=== PATIENT | male | born 1990 ===

== ENCOUNTER 2022-10-27 20:54 | Emergency (ER) | payer MEDICAID, SELFPAY ==
[2022-10-27 20:56] VITALS: BP 134/84; PULSE 83; RESP 18; TEMP 36.6; O2SAT 98; BMI 28.3
--- NOTE | 2022-10-27 21:21 | ED_ITS ---
HPI - General Adult General Chief complaint: General Medical Stated complaint: Penis issue Time Seen by Provider: 10/27/22 21:16 Source: patient History of Present Illness HPI narrative: Patient complaining of irritation on the penis since yesterday after sex no penile discharge no history of STDs Related Data Previous Rx's Medication Instructions Recorded bacitracin zinc 500 unit-polymyxin 1 appl topical Q8H #14.2 grams 10/27/22 B 10,000 unit/gram topical ointment (Polysporin) Allergies Allergy/AdvReac Type Severity Reaction Status Date / Time No Known Allergies Allergy Verified 10/27/22 21:07 Review of Systems Review of Systems: Yes all other systems are reviewed and are negative [facility] Social History Social History Advance Directives: No Advance Directives Information Provided: No Physical Exam ED Vital Signs: Vital Signs - 24 hr 10/27/22 20:56 Temperature 97.9 F Pulse Rate 83 Respiratory Rate 18 Blood Pressure 134/84 Pulse Oximetry 98 Oxygen Delivery Method Room Air BMI result Body Mass Index 28.3 Male genitals images: 1. Uncircumcised superficial abrasion on the glans skin no signs of infection no penile discharge Medications Administered Discontinued Medications Generic Name Dose Route Start Last Admin Trade Name Frankieq PRN Reason Stop Dose Admin Bacitracin 1 appl 10/27/22 21:41 10/27/22 21:52 Bacitracin Oint 14 Gm Tube TOPICAL 10/27/22 21:42 1 appl ONCE ONE Administration Protocol Medical Decision Making Medical Decision Making [facility] Narrative: Patient has superficial abrasion of the foreskin of the penis after having rough sex yesterday no signs of infection will give bacitracin ointment Lab Data Labs: Lab Results 10/27/22 Range/Units 21:21 Urine Color Yellow Urine Appearance Clear Urine pH 5.5 (5.0-9.0) Ur Specific [place] 1.025 (1.005-1.025) Urine Protein Negative (Neg-Trace) mg/dL Urine Glucose (UA) Negative (Negative) mg/dL Urine Ketones Negative (Negative) mg/dL Urine Blood Negative (Negative) Urine Nitrite Negative (Negative) Ur Leukocyte Esterase Negative (Negative) Discharge Plan Discharge Clinical Impression: Penile abrasion Patient Disposition: Home, Self-Care Instructions: Abrasion (ED) Additional Instructions: Local care as advised apply bacitracin ointment Prescriptions: New bacitracin zinc-polymyxin B [Polysporin] 500-10,000 unit/gram ointment 1 appl topical Q8H Qty: 14.2 0RF Interventions: ED Discharge Assessment Last Done: 10/27/22 21:50 Discharge Date/Time: 10/27/22 21:52
[2022-10-27 21:27] LABS: Appearance Urine Clear; Color Urine Yellow; Glucose Urine UA Negative (Negative); Leukocyte Esterase Urine Negative (Negative); Nitrite Urine Negative (Negative); PH 5.5 (5.0-9.0); Specific Gravity - Urine 1.025 (1.005-1.025); Urine Blood Negative (Negative); Urine Ketones Negative (Negative); Urine Protein Negative (Neg-Trace)
[2022-10-27] MEDS: Bacitracin Oint 14 GM TUBE 1 APPL TOPICAL (21:52)
[2022-10-28 07:18] LABS: CT PCR NOT DETECTED (Not Detect.); NG PCR NOT DETECTED (Not Detect.)
== END 2022-10-27 21:52 | disposition home or self-care (01) ==
PROVIDERS: Emergency Provider Internal Medicine
DX: S30.812A Abrasion of penis, initial encounter (principal); N48.89 Other specified disorders of penis; X58.XXXA Exposure to other specified factors, initial encounter; Y93.9 Activity, unspecified; Y92.9 Unspecified place or not applicable; Y99.9 Unspecified external cause status; Z20.2 Contact with and (suspected) exposure to infections with a predominantly sexual mode of transmission
CPT/HCPCS: 0353U; 81003; 99282; 99283

== ENCOUNTER 2023-11-08 13:38 | Emergency (ER) | payer MEDICAID, SELFPAY ==
--- NOTE | ~2023-11-08 | XR_ITS ---
EXAMINATION: XR CHEST CLINICAL INFORMATION: Chest pain COMPARISON: None available. TECHNIQUE: Frontal view of the chest was obtained. FINDINGS: No significant abnormality is noted involving the heart, lungs, mediastinum, bony thorax or soft tissues. XR/XR chest 1V IMPRESSION: Unremarkable examination.
[2023-11-08 13:57] VITALS: BP 128/80; PULSE 79; RESP 16; TEMP 36.6; O2SAT 97; BMI 29.2
--- NOTE | 2023-11-08 13:58 | ECG_ITS ---
Test Reason : DYSPNEA Blood Pressure : / mmHG Vent. Rate : 082 BPM Atrial Rate : 082 BPM P-R Int : 132 ms QRS Dur : 084 ms QT Int : 356 ms P-R-T Axes : 081 -39 024 degrees QTc Int : 415 ms Normal sinus rhythm Left axis deviation Minimal voltage criteria for LVH, may be normal variant ( Martinez product ) Abnormal ECG No previous ECGs available Referred By: Woody Calloway Electronically Signed By:JIGAR CRUZ MD
--- NOTE | 2023-11-08 13:58 | ED.GENADULT ---
HPI - General Adult General Chief complaint: General Medical Stated complaint: Diff Breathing Chest Discomfort Time Seen by Provider: 11/08/23 16:06 Source: patient Mode of arrival: ambulatory Limitations: no limitations History of Present Illness HPI narrative: 33-year-old male with no significant past medical history who presents emergency department with complaints of midsternal chest pain reproducible on palpation. Patient reports pain began 11:00 a.m. this morning when he was sitting in his truck. 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 He states pain initially caused shortness of breath and pain in the right ear which has since subsided. He reports that he ate [employer] a couple hours before pain began. He denies any radiation pain, current shortness of breath, abdominal pain, nausea, vomiting, dizziness, lightheadedness, or change in gait or range of motion. pertinent positives and negatives discussed in HPI Related Data Previous Rx's Medication Instructions Recorded bacitracin zinc 500 unit-polymyxin 1 appl topical Q8H #14.2 grams 10/27/22 B 10,000 unit/gram topical ointment (Polysporin) Allergies Allergy/AdvReac Type Severity Reaction Status Date / Time No Known Allergies Allergy Verified 10/27/22 21:07 Review of Systems Review of Systems: Yes all other systems are reviewed and are negative [facility] Social History Social History Advance Directives: No Advance Directives Information Provided: No Physical Exam ED Vital Signs: Vital Signs - 24 hr 11/08/23 13:57 11/08/23 16:00 Temperature 98 F 98.7 F Pulse Rate 79 59 Respiratory Rate 16 14 Blood Pressure 128/80 122/74 Pulse Oximetry 97 100 Oxygen Delivery Method Room Air Room Air BMI result Body Mass Index 29.2 Nursing notes and vital signs reviewed. GENERAL APPEARANCE: A&0 x 4, generally well appearing, no acute distress HENMT: Normal to inspection, atraumatic, face symmetrical. Normal external ears, nose, and oropharynx clear. EYE: PERRLA, EOM intact, structures appear normal NECK: Supple without lymphadenopathy. No stiffness or restricted ROM. CHEST: Normal to inspection, no ecchymosis or erythema, midsternal pain on palpation HEART: Normal rate and regular rhythm, normal S1/S2, no M/R/G LUNGS: LS CTA, moving air well. Able to speak in complete sentences. No crackles, wheezes, or rhonchi auscultated ABDOMEN: Soft, nontender, nondistended. Normal bowel sounds noted BACK: No CVAT, no obvious deformity EXTREMITIES: Moving all extremities without difficulty. No cyanosis, clubbing, or edema. Normal capillary refill. NEUROLOGICAL: Alert and oriented, moving all 4 extremities with equal strength. CN not formally tested but appearing grossly intact. Observed to ambulate with normal gait. Cognition normal SKIN: Warm and dry without any lesions, rash, or visible sores PSYCH: Cooperative, normal affect, normal thought process Course Course Course Narrative: RME: 33 yold male presents to the ED for chest pain and headache since this morning while at work. NO leg swelling or calf pain. labs/EKG/covid ordered Medications Administered Discontinued Medications Generic Name Dose Route Start Last Admin Trade Name Freq PRN Reason Stop Dose Admin Acetaminophen 650 mg 11/08/23 16:51 11/08/23 17:02 Acetaminophen 325 Mg Tablet PO 11/08/23 16:52 650 mg ONCE ONE Administration Al Hydroxide/Mg Hydroxide 30 ml 11/08/23 16:51 11/08/23 17:03 Magnesium Hydrox/Alum Hydrox 30 Ml Oral.Susp PO 11/08/23 16:52 30 ml ONCE ONE Administration Medical Decision Making Medical Decision Making [facility] Narrative: Old records reviewed for previous imaging, lab studies, ECGs, or notes. Patient was assessed the emergency department. No acute distress or toxicity noted. Patient is A&O x4, LS CTA, LENZ x4 with good strength. Chest x-ray completed showing no evidence of acute infection per my interpretation. EKG was normal sinus rhythm no signs of acute ischemia or ectopy, also per my interpretation. Nasal serology negative for COVID and flu. Blood work essentially unremarkable. Patient's symptoms are consistent with midsternal chest pain most likely due to a muscle strain or overuse injury secondary to heavy lifting/physically demanding job. Patient is safe for discharge at this time with plan for [id number] Tylenol and/or NSAID such as ibuprofen or naproxen for fever/discomfort with dosing as per packaging. HPI, PE, diagnostics, and plan discussed with patient and family with no unanswered questions at this time. Strict return precautions given to return to the emergency department with new, worsening, or concerning emergent symptoms. Recommended to follow-up with there primary care provider in 24-48 hours for further treatment and management. Differential Diagnosis Differential Diagnoses: The differential diagnosis associated with the presentation includes But not limited to ACS, PE, pneumonia, pneumothorax, pleurisy, costochondritis, contusion, strain/sprain Lab Data 11/08/23 14:09 11/08/23 14:09 Labs: Lab Results 11/08/23 Range/Units 14:09 WBC 10.1 (4.8-10.8) X10*3/uL RBC 5.12 (4.60-5.80) X10*6/uL Hgb 15.8 (14.0-18.0) g/dl Hct 45.3 (42.0-52.0) % MCV 88.5 (80.0-98.0) fL MCH 30.9 (27.0-33.0) pg MCHC 34.9 (31.0-36.0) g/dl RDW 12.7 (11.0-16.0) % Plt Count 241 (160-400) X10*3/uL MPV 10.8 (9.4-12.4) fL Immature Gran % (Auto) 0.2 (0.0-0.4) % Neut % (Auto) 67.1 (45-73) % Lymph % (Auto) 24.3 (20-40) % [place] % (Auto) 7.7 (2-11) % Eos % (Auto) 0.4 (0-4) % Baso % (Auto) 0.3 (0-2) % Lymph # (Auto) 2.5 (1.2-4.9) X10*3/uL [place] # (Auto) 0.8 (0.1-1.2) X10*3/uL Eos # (Auto) 0.0 (0.0-0.4) X10*3/uL Baso # (Auto) 0.0 (0.0-0.2) X10*3/uL Abs Immat Gran (auto) 0.02 (0.00-0.03) X10*3/uL Absolute Neuts (auto) 6.8 (2.0-8.3) x10*3/uL Absolute Nucleated RBC 0.000 (0.0-0.012) X10*3/uL Nucleated RBC % (auto) 0.0 (0.0-0.2) /100WBC PT 12.6 (11.1-13.3) SEC INR 1.0 (0.9-1.1) APTT 36.6 (26.0-36.8) SEC Sodium 138 (135-145) mmol/L Potassium 4.0 (3.3-5.1) mmol/L Chloride 109 H (96-108) mmol/L Carbon Dioxide 21 L (22-29) mmol/L Anion Gap 12 (12-20) BUN 17 H (9-16) mg/dL Creatinine 0.73 (0.5-1.4) mg/dL Estim Creat Clear Calc 128.0 Estimated GFR > 60 Random Glucose 94 (60-115) mg/dL Calcium 9.4 (8.4-10.2) mg/dL Total Bilirubin 0.3 (0.0-1.0) mg/dL AST 18 (5-37) U/L ALT 20 (0-40) U/L Alkaline Phosphatase 84 (39-117) U/L Troponin I High Sens < 2.7 (<3.5-35.0) ng/L B-Natriuretic Peptide < 10 (<100) pg/mL Total Protein 7.4 (6.5-8.0) g/dL Albumin 4.6 (3.5-5.0) g/dL COVID-19 (KIRSTEN) Negative (Negative) COVID-19 Clin Com See Note Influenza Type A (ELLIOT) Negative (Negative) Influenza Type B (ELLIOT) Negative (Negative) Influenza A & B Note See Note Discharge Plan Discharge Clinical Impression: Mid sternal chest pain, Muscle strain of chest wall Patient Disposition: Home, Self-Care Instructions: Muscle Strain (ED), Chest Wall Pain (ED) Additional Instructions: Your seen in the emergency department for concerns of mid-sternal chest pain that was reproducible with palpation. Your workup showed no evidence of heart attack or pneumonia. Your symptoms are consistent with a muscle strain. You are safe for discharge at this time with plan for management of fever or discomfort with [id number] Tylenol and/or NSAID such as ibuprofen or naproxen with dosing as per packaging. Please return to the emergency department with new, worsening, or concerning emergent symptoms. Recommended to follow-up with your primary care provider in 24-48 hours for further treatment and management. [facility] Prescriptions: No Action bacitracin zinc-polymyxin B [Polysporin] 500-10,000 unit/gram ointment 1 appl topical Q8H Qty: 14.2 0RF Referrals: [facility] Family Medicine [Provider Group] [facility] Primary CareYudy [Provider Group] [facility] [place] [facility] [facility] [facility]] Stand Alone Forms: Work/School Release Interventions: ED Discharge Assessment Last Done: 11/08/23 17:08 Discharge Date/Time: 11/08/23 17:09 Print Language: Russian
[2023-11-08 14:15] LABS: MANUAL DIFF FLAG NO
[2023-11-08 14:17] LABS: Basophils Percent Auto 0.3 % (0-2); Eosinophils Percent Auto 0.4 % (0-4); Hematocrit 45.3 % (42.0-52.0); Hemoglobin 15.8 g/dl (14.0-18.0); Imm Gran Abs Auto 0.02 X10*3/uL (0.00-0.03); Imm Gran Pct Auto 0.2 % (0.0-0.4); Lymphocytes Absolute Auto 2.5 X10*3/uL (1.2-4.9); Lymphocytes Percent Auto 24.3 % (20-40); Mean Corpuscular HGB Conc 34.9 g/dl (31.0-36.0); Mean Corpuscular Hemoglobin 30.9 pg (27.0-33.0); Mean Corpuscular Volume 88.5 fL (80.0-98.0); Mean Platelet Volume 10.8 fL (9.4-12.4); Monocytes Absolute Auto 0.8 X10*3/uL (0.1-1.2); Monocytes Percent Auto 7.7 % (2-11); Neutrophils Absolute Auto 6.8 x10*3/uL (2.0-8.3); Neutrophils Percent Auto 67.1 % (45-73); Platelet Count 241 X10*3/uL (160-400); Red Blood Count 5.12 X10*6/uL (4.60-5.80); Red Cell Distribution Width 12.7 % (11.0-16.0); White Blood Count 10.1 X10*3/uL (4.8-10.8)
[2023-11-08 14:23] LABS: Prothrombin Time 12.6 SEC (11.1-13.3)
[2023-11-08 14:26] LABS: Partial Thromboplastin Time 36.6 SEC (26.0-36.8)
[2023-11-08 14:31] LABS: Alanine Aminotransferase 20 U/L (0-40); Albumin Level 4.6 g/dL (3.5-5.0); Alkaline Phosphatase 84 U/L (39-117); Anion Gap 12 (12-20); Aspartate Amino Transferase 18 U/L (5-37); Bilirubin Total 0.3 mg/dL (0.0-1.0); Blood Urea Nitrogen 17 mg/dL (9-16); Calcium 9.4 mg/dL (8.4-10.2); Carbon Dioxide 21 mmol/L (22-29); Chloride 109 mmol/L (96-108); Estimated Glomerular Filt Rate > 60; Glucose Random 94 mg/dL (60-115); Sodium 138 mmol/L (135-145); Total Protein 7.4 g/dL (6.5-8.0)
[2023-11-08 14:32] LABS: COVID-19 Test Negative (Negative); IDNOW Serial# 08D9AD1C; IDNOW Serial# 152EDE1D; Influenza A Negative (Negative); Influenza B2 Negative (Negative)
[2023-11-08 14:37] LABS: B Type Natriuretic Peptide < 10 pg/mL (<100)
[2023-11-08 14:38] LABS: Troponin-I High Sensitivity < 2.7 ng/L (<3.5-35.0)
[2023-11-08 16:00] VITALS: BP 122/74; PULSE 59; RESP 14; TEMP 37.1; O2SAT 100
[2023-11-08] MEDS: Acetaminophen 325 MG TABLET 650 MG PO (17:02)
[2023-11-08] MEDS: Magnesium Hydrox/Alum Hydrox 30 ML ORAL.SUSP PO (17:03)
== END 2023-11-08 17:09 | disposition home or self-care (01) ==
PROVIDERS: Physician Assistant; Emergency Provider Student in an Organized Health Care Education/Training Program
DX: R07.89 Other chest pain (principal); S29.011A Strain of muscle and tendon of front wall of thorax, initial encounter; X50.0XXA Overexertion from strenuous movement or load, initial encounter; Y93.89 Activity, other specified; Y92.59 Other trade areas as the place of occurrence of the external cause; Y99.9 Unspecified external cause status; Z11.52 Encounter for screening for COVID-19
CPT/HCPCS: 36415; 71045; 80053; 83880; 84484; 85025; 85610; 85730; 87502; 87635; 93005; 99283; 99284

== ENCOUNTER → 2023-11-08 13:58 | Outpatient (BNV) | payer MEDICAID, SELFPAY | PROVIDERS: Emergency Provider Student in an Organized Health Care Education/Training Program; Visit Provider Internal Medicine Cardiovascular Disease | DX: R94.31 Abnormal electrocardiogram [ECG] [EKG] (principal) | CPT/HCPCS: 93010 ==

== ENCOUNTER 2025-06-12 21:56 | Emergency (ER) | payer MEDICAID, SELFPAY ==
--- NOTE | ~2025-06-12 | XR_ITS ---
CLINICAL HISTORY: chest pain, SOB 1 view chest x-ray Comparison: Chest x-ray 11/08/2023 Findings: No consolidation or effusion. Heart size is normal. No acute fracture. IMPRESSION: 1. No acute cardiopulmonary abnormality. This document has been electronically signed by: Abel Hoang MD on 06/12/2025 23:37:38
--- NOTE | 2025-06-12 21:57 | ECG_ITS ---
Test Reason : CHEST PAIN Blood Pressure : */* mmHG Vent. Rate : 79 BPM Atrial Rate : 79 BPM P-R Int : 130 ms QRS Dur : 90 ms QT Int : 358 ms P-R-T Axes : 41 -22 33 degrees QTcB Int : 410 ms Normal sinus rhythm Normal ECG When compared with ECG of 08-Nov-2023 14:04, No significant change was found Referred By: Generic ED Physician Electronically Signed By: Micheal Higginbotham
[2025-06-12 22:09] VITALS: BP 141/70; PULSE 79; RESP 16; TEMP 36.8; O2SAT 98; BMI 30.3
[2025-06-12 22:31] LABS: MANUAL DIFF FLAG NO
[2025-06-12 22:32] VITALS: BP 131/79; PULSE 78; RESP 21; TEMP 36.8; O2SAT 98
[2025-06-12 22:32] LABS: Hematocrit 42.1 % (42.0-52.0); Hemoglobin 14.9 g/dl (14.0-18.0); Imm Gran Abs Auto 0.03 X10*3/uL (0.00-0.03); Imm Gran Pct Auto 0.3 % (0.0-0.4); Lymphocytes Absolute Auto 2.9 X10*3/uL (1.2-4.9); Mean Corpuscular HGB Conc 35.4 g/dl (31.0-36.0); Mean Corpuscular Hemoglobin 31.0 pg (27.0-33.0); Mean Corpuscular Volume 87.5 fL (80.0-98.0); NRBC Abs Auto 0.000 X10*3/uL (0.0-0.012); NRBC Pct Auto 0.0 /100WBC (0.0-0.2); Platelet Count 229 X10*3/uL (160-400); Red Blood Count 4.81 X10*6/uL (4.60-5.80); White Blood Count 8.9 X10*3/uL (4.8-10.8)
[2025-06-12 22:43] LABS: Anion Gap 15 (12-20); Blood Urea Nitrogen 16 mg/dL (9-16); Calcium 9.6 mg/dL (8.4-10.2); Carbon Dioxide 23 mmol/L (22-29); Chloride 110 mmol/L (96-108); Creatinine Clr Calc Pharmacy 108.2; Estimated Glomerular Filt Rate > 60; Potassium 4.1 mmol/L (3.3-5.1); Sodium 144 mmol/L (135-145)
--- OUTSIDE RECORDS SUMMARY | 2025-06-12 22:45 | XMS_ITS | Clinical Summary ---
Author Organization [employer] Address [address] [place] [address] Care Team Providers Care Account Services Specialist Name Role Phone Unavailable Primary Care Provider Unavailabl e Allergies No known active allergies Social History Tobacco Use Types Packs/Day Years Used Date Smoking Tobacco: Never Assessed Sex and Gender Information Value Date Recorded Sex Assigned at Male 02/02/2023 10:02 AM EDT Legal Sex Male 9:55 AM EDT Gender Identity Male 02/02/2023 10:02 AM EDT Sexual Orientation Straight 02/02/2023 10 :02 AM EDT Plan of Treatment Health Maintenance Due Date Last Done Comments Depression Screening 1988 HIV Screening 1988 Lipid Panel 1988 SDOH Screening 1988 Disability Screening 1988 Alcohol/Substance Use Screening 2000 Tobacco Screening 2000 Family Planning (PISQ) 2003 HPV Vaccines (1 - Male 3-dos e series) 2003 Hepatitis C Screening 2006 DTaP/Tdap/Td Vaccines (1 - Tdap) 2007 Hepatitis B Vaccines (1 of 3 - 19+ 3-dose series) 2007 COVID-19 Vaccine (1 - 2023-2 5 season) 2025 Influenza Vaccine (#1) 2025 Zoster Vaccines (1 of 2) 2038 RSV Patients and Pa tients Aged 60 years or older (1 - 1-dose 75+ series) 2063 HIB Vaccines Aged Out No longer eligi ble based on patient's age to complete this topic Hepatitis A Vaccines Aged Out No long er eligible based on patient's age to complete this topic IPV Vaccines Aged Out No longer eligi ble based on patient's age to complete this topic Meningococcal B Vaccine Aged Out No l onger eligible based on patient's age to complete this topic Meningococcal Vaccine Aged Out No alexandra loy eligible based on patient's age to complete this topic Pneumococcal Vaccine: Pediat rics (0 to 5 Years) and At-Risk Patients (6 to 49) Years Aged Out No longer eligible b ased on patient's age to complete this topic RSV under 20 months Aged Out No longe r eligible based on patient's age to complete this topic Rotavirus Vaccines Aged Out No longer eligible based on patient's age to complete this topic Insurance [facility] C3
[2025-06-12 22:51] LABS: COVID-19 Test Negative (Negative); IDNOW Serial# 6674DD1D
[2025-06-12 22:52] LABS: Troponin-I High Sensitivity < 2.7 ng/L (<3.5-35.0)
--- NOTE | 2025-06-12 23:24 | ED.CHESTPAIN ---
HPI - Chest Pain General Chief Complaint: Chest Pain Stated Complaint: chest pain Time Seen by Provider: 06/12/25 23:09 Source: patient and old records reviewed Mode of arrival: ambulatory Limitations: no limitations History of Present Illness ED Provider: SHELIA CORONADO narrative: 34 yo male with no PMH no hx of CAD no prior cardiac work up who has no fam hx of early CAD, denies any recent travel, procedures, hx of VTE and no hormone use. He had no preceding URI. He reports since Monday while at rest he has pain across his chest and makes it painful to breathe. It hurts to touch his chest. He denies cough, dyspnea, fevers, rash. He has not had this before. MD complaint: chest pain Onset (ago): day(s) (Monday) Timing of current episode: constant Prior episodes: No Pain location: substernal and left chest Pain radiation: left arm Severity: moderate Quality: aching Relieving factors: nothing Exacerbating factors: palpation and movement Treatment prior to arrival: none Related Data Previous Rx's ?Medication ?Instructions ?Recorded bacitracin zinc 500 unit-polymyxin 1 appl topical Q8H #14.2 grams 10/27/22 B 10,000 unit/gram topical ointment (Polysporin) cyclobenzaprine 10 mg tablet 10 mg PO TID PRN muscle spasm #20 06/13/25 tabs prednisone 20 mg tablet 40 mg (2 x 20 mg) PO DAILY 4 days 06/13/25 #8 tabs Allergies Allergy/AdvReac Type Severity Reaction Status Date / Time No Known Allergies Allergy Verified 06/12/25 22:13 Review of Systems Review of Systems: Constitutional : No Fever, No Chills ENT/Mouth : No sore throat, No Rhinorrhea, No Swallowing Difficulty Eyes: No Eye Pain, No Swelling, No Redness Cardiovascular : pos Chest Pain, positive SOB, No Orthopnea, no Edema Respiratory : No Cough, No Sputum, No Wheezing, positive dyspnea Gastrointestinal : No Nausea, No Vomiting, No Diarrhea, No abdominal Pain, No Hematochezia, No Melena Genitourinary : No Dysuria, No Urinary Frequency, No Hematuria Musculoskeletal : No joint pain, No Myalgias Skin : No Skin Lesions, No rash Neuro : No Weakness, No Numbness, No Dizziness, No Headache All other systems reviewed and are negative PMFSH Past Medical History Attestation statement: The following information was validated with the patient. Source: old records reviewed Medical History No pertinent past medical history Social History Social History Smoked in Last 30 Days: No Use of substances other than those prescribed or required for medical reasons: No Advance Directives: No Physical Exam Vital Signs: Vital Signs: Last Vital Signs Temp 98.2 F 06/12/25 22:32 Pulse 78 06/12/25 22:32 Resp 21 H 06/12/25 22:32 BP 131/79 06/12/25 22:32 Pulse Ox 98 06/12/25 22:32 O2 Del Method Room Air 06/12/25 22:32 BMI result Body Mass Index 30.3 Appearance: Alert. Oriented X3. No acute distress. Eyes: Pupils equal, round and reactive to light. ENT: Pharynx normal. Neck: Normal inspection. Neck supple. CVS: Normal heart rate and rhythm. Pulses normal. Chest wall: ttp along L anterior chest that reproduces with pain Respiratory: No respiratory distress. Breath sounds normal. Abdomen: Soft and nontender. Skin: Skin warm and dry. Normal skin color. Extremities: No lower extremity edema. Neuro: Oriented X 3. No motor deficit. No sensory deficit. CN2-12 intact Medical Decision Making Medical Decision Making [facility] Narrative: 34 yo male with no PMH here with c/o 6 days of chest wall pain worse with palpations and movements makes him feel like it hurts to breathe, he has no ACS risk factors will obtain EKG, no preceding viral syndrome to suggest pericarditis/myocarditis, he is PERC negative, his lungs are CTAB doubt PTX, he has symmetric distal pulses doubt dissection. Will obtain EKG, trop x 1, CXR. He has no exertional chest pain symptoms. Heart score = 0 Differential Diagnosis Differential Diagnoses: The differential diagnosis associated with the presentation includes atypical chest pain, costochondritis Admission/Observation Consideration of admission/observation: Escalation of care including admission/observation considered work up negative stable for DC Lab Data [facility] Lab Attestation statement: I reviewed the patient's lab results. 06/12/25 22:25 06/12/25 22:25 Labs: Lab Results 09/04/25 Range/Units 22:25 WBC 8.9 (4.8-10.8) X10*3/uL RBC 4.81 (4.60-5.80) X10*6/uL Hgb 14.9 (14.0-18.0) g/dl Hct 42.1 (42.0-52.0) % MCV 87.5 (80.0-98.0) fL MCH 31.0 (27.0-33.0) pg MCHC 35.4 (31.0-36.0) g/dl RDW 13.0 (11.0-16.0) % Plt Count 229 (160-400) X10*3/uL MPV 11.3 (9.4-12.4) fL Immature Gran % (Auto) 0.3 (0.0-0.4) % Neut % (Auto) 54.4 (45-73) % Lymph % (Auto) 32.9 (20-40) % [place] % (Auto) 10.3 (2-11) % Eos % (Auto) 1.7 (0-4) % Baso % (Auto) 0.4 (0-2) % Lymph # (Auto) 2.9 (1.2-4.9) X10*3/uL [place] # (Auto) 0.9 (0.1-1.2) X10*3/uL Eos # (Auto) 0.2 (0.0-0.4) X10*3/uL Baso # (Auto) 0.0 (0.0-0.2) X10*3/uL Abs Immat Gran (auto) 0.03 (0.00-0.03) X10*3/uL Absolute Neuts (auto) 4.9 (2.0-8.3) x10*3/uL Absolute Nucleated RBC 0.000 (0.0-0.012) X10*3/uL Nucleated RBC % (auto) 0.0 (0.0-0.2) /100WBC Sodium 144 (135-145) mmol/L Potassium 4.1 (3.3-5.1) mmol/L Chloride 110 H (96-108) mmol/L Carbon Dioxide 23 (22-29) mmol/L Anion Gap 15 (12-20) BUN 16 (9-16) mg/dL Creatinine 0.87 (0.5-1.4) mg/dL Estim Creat Clear Calc 108.2 Estimated GFR > 60 Random Glucose 93 (60-115) mg/dL Calcium 9.6 (8.4-10.2) mg/dL Troponin I High Sens < 2.7 (<3.5-35.0) ng/L COVID-19 (KIRSTEN) Negative (Negative) COVID-19 Clin Com See Note Independent Interpretation I performed an independent interpretation of an: EKG and Plain X-Ray (normal ) Interpretation: Rate: 79 Rhythm: NSR [place]: left Normal P waves. Normal [place]. Normal QRS complex. ST T wave : normal no LATOYA qTC: 410 prior studies: no acute ischemia The study has been interpreted contemporaneously by me. . Radiology Impression Discussion of test interpretation with radiology: I have reviewed the radiologist's reading. External Record Review External record reviewed: Outpatient record Prescription Management I considered prescription management with: Other Discharge Plan Discharge Clinical Impression: Acute costochondritis Patient Disposition: Home, Self-Care Instructions: Costochondritis (ED) Additional Instructions: take all medications with food return for worsening symptoms or any other concerns xray and EKG normal no COVID this can happen again in the future Prescriptions: New cyclobenzaprine 10 mg tablet 10 mg PO TID PRN (Reason: muscle spasm) Qty: 20 0RF prednisone 20 mg tablet 40 mg PO DAILY 4 Days Qty: 8 0RF No Action bacitracin zinc-polymyxin B [Polysporin] 500-10,000 unit/gram ointment 1 appl topical Q8H Qty: 14.2 0RF Print Language: Hungarian
[2025-06-13 00:36] VITALS: BP 135/88; PULSE 96; RESP 17; TEMP 36.7; O2SAT 98
== END 2025-06-13 00:37 | disposition home or self-care (01) ==
PROVIDERS: Emergency Provider Emergency Medicine
DX: M94.0 Chondrocostal junction syndrome [Tietze] (principal); R07.89 Other chest pain; I25.10 Atherosclerotic heart disease of native coronary artery without angina pectoris; Z11.52 Encounter for screening for COVID-19; Z03.818 Encounter for observation for suspected exposure to other biological agents ruled out
CPT/HCPCS: 71045; 80048; 84484; 85025; 87635; 93005; 99283; 99284

== ENCOUNTER → 2025-06-12 21:57 | Outpatient (BNV) | payer MEDICAID, SELFPAY | PROVIDERS: Emergency Provider Emergency Medicine; Visit Provider Internal Medicine Cardiovascular Disease | DX: R07.9 Chest pain, unspecified (principal) | CPT/HCPCS: 93010 ==

== ENCOUNTER → 2025-06-12 22:23 | Outpatient (BNV) | payer MEDICAID, SELFPAY | PROVIDERS: Emergency Provider Emergency Medicine; Visit Provider Radiology Diagnostic Radiology | DX: R07.9 Chest pain, unspecified (principal); R06.02 Shortness of breath | CPT/HCPCS: 71045 ==

== ENCOUNTER 2025-08-06 23:57 | Emergency (ER) | payer MEDICAID, SELFPAY ==
[2025-08-06 23:59] VITALS: BP 130/76; PULSE 93; RESP 20; TEMP 36.7; O2SAT 98; BMI 29.2
--- NOTE | 2025-08-07 00:42 | ED.BACK ---
HPI - Back Pain/Injury General Chief Complaint: Back Pain/Injury Stated Complaint: back pain Time Seen by Provider: 08/07/25 00:28 Source: patient Mode of arrival: ambulatory Limitations: no limitations History of Present Illness ED Provider: Dr. Blane Owens HPI Narrative: 34-year-old male with no significant past medical history presents emergency department for evaluation of neck, shoulder and lower back pain x1 week. The patient does not recount any injury. He states the pain came on gradually, his constant and is severe (10/10). Patient's pain is worse with movement. He has taken Tylenol with minimal relief for the pain. Denied fever, chills, numbness, weakness, loss of bowel or bladder control Related Data Previous Rx's ?Medication ?Instructions ?Recorded bacitracin zinc 500 unit-polymyxin 1 appl topical Q8H #14.2 grams 10/27/22 B 10,000 unit/gram topical ointment (Polysporin) cyclobenzaprine 10 mg tablet 10 mg PO TID PRN muscle spasm #20 06/13/25 tabs prednisone 20 mg tablet 40 mg (2 x 20 mg) PO DAILY 4 days 06/13/25 #8 tabs cyclobenzaprine 10 mg tablet 10 mg PO TID PRN pain, muscle 08/07/25 spasm #15 tabs ibuprofen 400 mg tablet 400 mg PO TID PRN fever or pain 08/07/25 #30 tabs Allergies Allergy/AdvReac Type Severity Reaction Status Date / Time No Known Allergies Allergy Verified 08/07/25 00:00 Review of Systems Review of Systems: Yes all other systems are reviewed and are negative [facility] Past Medical History [facility] Narrative: Social history: Patient smokes 1 pack of cigarettes per day times 17 years. He denies alcohol use. He denies drug use. Medical History No pertinent past medical history Social History Social History Advance Directives: No Physical Exam Vital Signs: Vital Signs: Last Vital Signs Temp 98.1 F 08/06/25 23:59 Pulse 93 08/06/25 23:59 Resp 20 08/06/25 23:59 BP 130/76 08/06/25 23:59 Pulse Ox 98 08/06/25 23:59 O2 Del Method Room Air 08/06/25 23:59 BMI result Body Mass Index 29.2 Vital signs were normal Exam: General: Awake, alert in no distress Head: Normocephalic, atraumatic EENT: PERRL, sclera and conjunctiva are normal, mouth with no erythema or exudates Neck: Tenderness with spasm of the trapezius muscles bilaterally Lung: breath sounds symmetric, no wheezing, no rales and no rhonchi Chest: symmetric movement, nontender Heart: regular rate and rhythm, normal S1, S2 no murmurs or rubs Abdomen: soft, non-tender, nondistended, normal bowel sounds Back: no vertebral tenderness, tenderness palpation of bilateral paraspinal muscles in the lumbar sacral region, negative straight leg raises bilaterally Extremities: no deformities, moves all extremities symmetrically, no edema Neuro: Awake, alert, oriented, normal speech, cranial nerves 2-12 intact, moves all extremities symmetrically Psych: Pleasant, cooperative Medical Decision Making Medical Decision Making MDM Narrative: 34-year-old male with no significant past medical history presents emergency department for evaluation of neck, shoulder and lower back pain x1 week. The patient does not recount any injury. He states the pain came on gradually, his constant and is severe (10/10). Patient's pain is worse with movement. He has taken Tylenol with minimal relief for the pain. Denied fever, chills, numbness, weakness, loss of bowel or bladder control. Vital signs were normal. Physical exam did reveal tenderness with palpation of the bilateral trapezius muscles and bilateral paraspinal muscles in the lumbar sacral area. Differential diagnosis: ?Includes but is not limited to musculoskeletal sprain, musculoskeletal strain, musculoskeletal spasm, disc disease Course: Patient's examination is consistent with musculoskeletal sprain with spasm. Patient was given Toradol 60 mg IM with some relief his pain. Patient was started on ibuprofen 400 mg 3 times a day as needed for pain. He was also advised to continue taking his Tylenol as directed on the bottle. Patient was also given a prescription for cyclobenzaprine 10 mg 3 times a day as needed for pain that has spasm. He was given printed and verbal instructions and discharged home. Differential Diagnosis Differential Diagnoses: The differential diagnosis associated with the presentation includes (See above) Admission/Observation Consideration of admission/observation: Escalation of care including admission/observation considered (Yes) Prescription Management I considered prescription management with: Pain Medication (Ibuprofen 400 mg tablets) and Other (Cyclobenzaprine) Discharge Plan Discharge Clinical Impression: Strain of lumbar region Qualifiers: Encounter type: initial encounter Qualified Code(s): S39.012A - Strain of muscle, fascia and tendon of lower back, initial encounter Cervical muscle strain Qualifiers: Encounter type: initial encounter Qualified Code(s): S16.1XXA - Strain of muscle, fascia and tendon at neck level, initial encounter Patient Disposition: Home, Self-Care Instructions: Low Back Strain (ED), Cervical Sprain (ED) Additional Instructions: You had tenderness with pushing on the muscles of your neck and lower back. This has consistent with a strain of the muscles in your neck and back. Your exam was otherwise unremarkable. You were treated with Toradol (ketorolac) 60 mg IM Take ibuprofen 200 mg pills, 2 pills every 6 hours as needed for pain or fever. Take Tylenol (acetaminophen) 500 mg pills, 2 pills every 6 hours as needed for pain or fever. Take Flexeril (cyclobenzaprine) 10 mg pills, 1 pill every 6-8 hours as needed for pain or spasm. ?This medication will make you sleepy. ?Do not drive or work while taking this medication. Follow-up with your doctor in 2 days. Please return to the emergency department if your symptoms get worse or if you develop any symptoms that are concerning to you. Prescriptions: New cyclobenzaprine 10 mg tablet 10 mg PO TID PRN (Reason: pain, muscle spasm) Qty: 15 0RF ibuprofen 400 mg tablet 400 mg PO TID PRN (Reason: fever or pain) Qty: 30 0RF No Action bacitracin zinc-polymyxin B [Polysporin] 500-10,000 unit/gram ointment 1 appl topical Q8H Qty: 14.2 0RF cyclobenzaprine 10 mg tablet 10 mg PO TID PRN (Reason: muscle spasm) Qty: 20 0RF prednisone 20 mg tablet 40 mg PO DAILY 4 Days Qty: 8 0RF Print Language: Malay
[2025-08-07 00:58] VITALS: BP 131/87; PULSE 85; RESP 17; O2SAT 98
[2025-08-07 01:17] VITALS: BP 131/87; PULSE 85; RESP 17; TEMP 36.6; O2SAT 98
== END 2025-08-07 01:19 | disposition home or self-care (01) ==
PROVIDERS: Emergency Provider Emergency Medicine Emergency Medical Services
DX: S39.012A Strain of muscle, fascia and tendon of lower back, initial encounter (principal); S16.1XXA Strain of muscle, fascia and tendon at neck level, initial encounter; X58.XXXA Exposure to other specified factors, initial encounter; Y93.9 Activity, unspecified; Y92.9 Unspecified place or not applicable
CPT/HCPCS: 96372; 99284; J1885

== ENCOUNTER 2025-10-05 22:28 | Emergency (ER) | payer MEDICAID, SELFPAY ==
[2025-10-05 22:30] VITALS: BP 115/77; PULSE 68; RESP 18; TEMP 36.8; O2SAT 98; BMI 28.3
--- OUTSIDE RECORDS SUMMARY | 2025-10-06 00:35 | XMS_ITS | Clinical Summary ---
Author Organization [facility] [employer] Address [address] [place] [address] Care Team Providers Care Registered Nurse Maternal Child Name Role Phone Unavailable Primary Care Provider [...] 3-dose series) 2007 COVID-19 Vaccine (1 - 2024-2 6 season) 2025 Influenza Vaccine (#1) 2025 Zoster [...] patient's age to complete this topic Insurance [facility] C3
--- NOTE | 2025-10-06 00:46 | ED_ITS ---
HPI - Ear Problem General Chief complaint: Ear Problems Stated complaint: ear pain ? infection Time Seen by Provider: 10/05/25 23:50 History of Present Illness ED Provider: nicanor HPI Narrative: 35-year-old male no significant medical history who has 2 weeks of ear pain left greater than right no swimming no trauma no scuba diving flights or prior ENT issues. Denies sore throat denies ringing in the ears ear feels hot. No discharge Related Data Previous Rx's ?Medication ?Instructions ?Recorded bacitracin zinc 500 unit-polymyxin 1 appl topical Q8H #14.2 grams 10/27/22 B 10,000 unit/gram topical ointment (Polysporin) cyclobenzaprine 10 mg tablet 10 mg PO TID PRN muscle s pasm #20 06/13/25 tabs prednisone 20 mg tablet 40 mg (2 x 20 mg) PO DAILY 4 days 06/13/25 #8 tabs cyclobenzaprine 10 mg tablet 10 mg PO TID PRN pain, mu scle 08/07/25 spasm #15 tabs ibuprofen 400 mg tablet 400 mg PO TID PRN fever or p ain 08/07/25 #30 tabs ciprofloxacin 0.3 %-dexamethasone 4 drp otic (ear) lef t BID 7 days 10/06/25 0.1 % ear drops,suspension #7.5 mL Allergies Allergy/AdvReac Type Severity Reaction Status Date / Time No Known Allergies Allergy Verified 10/05/25 22:31 [facility] Past Medical History Medical History No pertinent past medical history Social History Social History Advance Directives: No Advance Directives Information Provided: No Do you have a plan to hurt others: No Plan Physical Exam Exam: Exam: General awake alert oriented nontoxic supple neck ENT: Normal external ear structures left ear somewhat tender with movement of the external ear structures. No discharge. Mild cerumen. Good visualization of the TM which looks normal to me he did have significant tenderness and perhaps some mild edema of the canal suggestive of perhaps early mild otitis externa. Right ear completely normal with nontender canal normal TM and normal external ear structures. Neither mastoid tender Vital Signs: Vital Signs: Last Vital Signs Temp 98.2 F 10/06/25 01:05 Pulse 68 10/06/25 01:05 Resp 18 10/06/25 01:05 BP 115/77 10/06/25 01:05 Pulse Ox 98 10/06/25 01:05 O2 Del Method Room Air 10/06/25 01:05 BMI result Body Mass Index 28.3 Medical Decision Making Medical Decision Making MDM Narrative: 35-year-old male clinical exam suggesting perhaps mild early left otitis externa. No OM. No DM or immunocompromise, or mastoid TTP or ill/toxic appearance to suspect complication Topical abx, wick , PCP/urgent care ear reassessment in 5 d Discharge Plan Discharge Clinical Impression: Otitis externa Patient Disposition: Home, Self-Care Instructions: Demian's Ear (ED) Additional Instructions: We have diagnosed you with presumed external ear infection called otitis externa. We have placed a small cotton wick in your ear which allows for placement of drops. Call your primary doctor for follow up or you can follow up in urgent care in about a week to reassess the ear. Keep the wick in your ear and apply the drops daily as prescribed Prescriptions: New ciprofloxacin-dexamethasone 0.3-0.1 % drops,suspension 4 drp otic (ear) left BID 7 Days Qty: 7.5 0RF No Action bacitracin zinc-polymyxin B [Polysporin] 500-10,000 unit/gram ointment 1 appl topical Q8H Qty: 14.2 0RF cyclobenzaprine 10 mg tablet 10 mg PO TID PRN (Reason: muscle spasm) Qty: 20 0RF prednisone 20 mg tablet 40 mg PO DAILY 4 Days Qty: 8 0RF cyclobenzaprine 10 mg tablet 10 mg PO TID PRN (Reason: pain, muscle spasm) Qty: 15 0RF ibuprofen 400 mg tablet 400 mg PO TID PRN (Reason: fever or pain) Qty: 30 0RF Interventions: ED Discharge Assessment Last Done: 10/06/25 01:05 Discharge Date/Time: 10/06/25 01:05 Print Language: Kiswahili
[2025-10-06 01:05] VITALS: BP 115/77; PULSE 68; RESP 18; TEMP 36.8; O2SAT 98
== END 2025-10-06 01:05 | disposition home or self-care (01) ==
PROVIDERS: Emergency Provider Emergency Medicine
DX: H60.92 Unspecified otitis externa, left ear (principal)
CPT/HCPCS: 99282